=== PATIENT | male | born 1965 | race Two or more races ===

== ENCOUNTER 2017-07-20 11:04 | Outpatient (CLI) | payer OTHER | END 2017-07-20 11:13 | disposition home or self-care (01) | LOC: SONOGRAMA 11:04 | DX: D21.6 Benign neoplasm of connective and other soft tissue of trunk, unspecified (principal) ==

== ENCOUNTER 2017-08-22 05:45 | Day surgery (SDC) | payer OTHER | END 2017-08-22 12:20 | disposition home or self-care (01) | LOC: CIR.AMB 05:45 | DX: D17.1 Benign lipomatous neoplasm of skin and subcutaneous tissue of trunk (principal) ==